=== PATIENT | male | born 1990 | race Caucasian/White ===

== ENCOUNTER 2023-03-12 04:00 | Day surgery (SDC) | payer OTHER ==
[2023-03-12] VITALS (248 sets, daily range): BP systolic 86–126; BP diastolic 50–88
[~2023-03-12] VITALS: Ht 182.9 cm; Wt 73.4 kg
[2023-03-12 08:11] LABS: BASO% 0.5 % (0-3); EOS% 4.1 % (0-8); HEMATOCRIT 40.7 % (39.0-50.0); HEMOGLOBIN 14.3 g/dl (14.0-18.0); IMMATURE GRANULOCYTES 0.2 % (0.0-5.0); LYMPH% 39.7 % (15-41); MEAN CELL VOLUME 95.5 fL CALC (80.0-100.0); MEAN CORPUSCULAR HGB 33.6 pG CALC (26.0-32.0); MEAN CORPUSCULAR HGB CONC 35.1 g/dL CAL (32.0-36.0); NEUT# 2.59 thou/uL (1.82-7.42); NEUT% 44.5 % (42-76); RED BLOOD COUNT 4.26 mill/uL (4.70-6.10); RED CELL DISTRI WIDTH 11.8 % (11.5-15.5)
[2023-03-12 08:25] LABS: ALKALINE PHOSPHATASE 38 u/l (38-126); ANION GAP 9 (6-22 (CALC)); BILIRUBIN, TOTAL 0.1 mg/dL (0.2-1.3); BUN 23 mg/dL (9-20); BUN/CREATININE RATIO 33 (12-20 (CALC)); CARBON DIOXIDE 28 mmol/l (22-30); CHLORIDE 105 mmol/l (95-108); CREATININE 0.7 mg/dL (0.7-1.3); GFR FOR AFR.AMER. > 60 ML/MIN (>=60 (CALC)); GFR OTHER RACES > 60 ML/MIN (>=60 (CALC)); POTASSIUM 4.2 mmol/l (3.5-5.1); SGOT/AST 34 u/l (17-59); SODIUM 138 mmol/l (137-146); TOTAL PROTEIN 6.4 g/dL (6.3-8.2)
[2023-03-12] MEDS ORDERED: VALTREX1 GM PO (08:51)
[2023-03-12] MEDS ORDERED: NALTREXONE50 MG PO (14:49)
[2023-03-12] MEDS ORDERED: CLONIDINE0.1 MG PO (14:50)
[2023-03-12] MEDS ORDERED: KLONOPIN2 MG PO (14:50)
[2023-03-13 04:01] VITALS: BP 109/64
[2023-03-13 04:55] LABS: BASO% 0.1 % (0-3); HEMATOCRIT 38.9 % (39.0-50.0); IMMATURE GRANULOCYTES 0.3 % (0.0-5.0); MEAN CELL VOLUME 93.3 fL CALC (80.0-100.0); MEAN CORPUSCULAR HGB 33.6 pG CALC (26.0-32.0); MONO% 1.8 % (2-13); NEUT# 13.3 thou/uL (1.82-7.42); NEUT% 90.8 % (42-76); RED BLOOD COUNT 4.17 mill/uL (4.70-6.10); RED CELL DISTRI WIDTH 11.6 % (11.5-15.5)
[2023-03-13 05:00] LABS: ALBUMIN 3.9 g/dL (3.2-5.0); ALKALINE PHOSPHATASE 34 u/l (38-126); ANION GAP 12 (6-22 (CALC)); BUN 16 mg/dL (9-20); BUN/CREATININE RATIO 26 (12-20 (CALC)); CARBON DIOXIDE 23 mmol/l (22-30); CHLORIDE 110 mmol/l (95-108); CREATININE 0.6 mg/dL (0.7-1.3); GFR FOR AFR.AMER. > 60 ML/MIN (>=60 (CALC)); GFR OTHER RACES > 60 ML/MIN (>=60 (CALC)); MAGNESIUM 2.1 mg/dL (1.6-2.3); POTASSIUM 3.9 mmol/l (3.5-5.1); SGOT/AST 46 u/l (17-59); SODIUM 141 mmol/l (137-146); TOTAL PROTEIN 6.4 g/dL (6.3-8.2)
[2023-03-13 05:02] LABS: BILIRUBIN, TOTAL 0.3 mg/dL (0.2-1.3)
[2023-03-13 07:37] VITALS: BP 95/54
[2023-03-13 08:13] VITALS: BP 95/54
== END 2023-03-13 14:10 | disposition home or self-care (01) | DRG 897 ==
LOC: MS2 04:00 → ANR 04:00 → MS2 17:36 → ANR 03-13 14:10
PROVIDERS: ATTEND Anesthesiology Critical Care Medicine
DX: F11.20 Opioid dependence, uncomplicated (principal)
CPT/HCPCS: J2354; J3475